=== PATIENT | female | born 1940 | race Caucasian/White ===

== ENCOUNTER 2022-01-25 07:58 | Outpatient (CLI) | payer OTHER | END 2022-01-25 08:17 | disposition home or self-care (01) | LOC: RAD 07:58 | DX: I10 Essential (primary) hypertension (principal); E03.9 Hypothyroidism, unspecified; J32.9 Chronic sinusitis, unspecified; M85.80 Other specified disorders of bone density and structure, unspecified site; E04.2 Nontoxic multinodular goiter ==